=== PATIENT | male | born 1960 | race Caucasian/White ===

== ENCOUNTER 2019-07-28 23:46 | Inpatient (IN) | payer OTHER ==
[~2019-07-28] VITALS: Ht 172.7 cm; Wt 103.4 kg
[~2019-07-28 23:46] MED LIST: AMLO10TA88; ASPI-1155 PO; BIOT25008; COR25 PO; GABA-533 PO; LOSA1TAB40; METF-381 PO; NIAC1000; OMEP20CA11; SIMV40TA5 PO
[2019-07-29 01:17] VITALS: BP_SYST 152
[2019-07-29 03:30] LABS: BASOPHILS # (AUTO) 0.1 K/uL (0.0-0.2); EOSINOPHILS % (AUTO) 0.4 % (0.0-4.0); HEMOGLOBIN 11.3 g/dL (14.0-18.0); LYMPHOCYTES # (AUTO) 1.3 K/uL (1.0-5.5); LYMPHOCYTES % (AUTO) 17.9 % (20.5-51.5); MEAN CORPUSCULAR HEMOGLOBIN 26 pg (27-31); MEAN CORPUSCULAR HGB CONC 31 % (32-36); MEAN CORPUSCULAR VOLUME 82 fL (79.0-98.0); MONOCYTES # (AUTO) 0.7 K/uL (0.0-1.0); MONOCYTES % (AUTO) 9.6 % (1.7-9.3); NEUTROPHILS # (AUTO) 5.2 K/uL (1.8-7.7); NEUTROPHILS % (AUTO) 71.1 % (40.0-70.0); PLATELET COUNT (AUTO) 199 K/uL (130-430); WHITE BLOOD COUNT (AUTO) 7.3 K/uL (4.8-10.8)
[2019-07-29 03:50] LABS: CALCIUM 8.5 mg/dL (8.4-11.0); CREATININE 1.81 mg/dL (0.55-1.30); POTASSIUM 4.3 mmol/L (3.5-5.1)
[2019-07-29 03:58] LABS: ALBUMIN 3.1 g/dL (3.4-4.8); TOTAL BILIRUBIN 1.4 mg/dL (0.0-1.0)
[2019-07-29] MEDS ORDERED: ASPIRIN 325 MG TABLET PO ONE (04:30)
[2019-07-29] MEDS ORDERED: FUROSEMIDE 40 MG/4 ML VIAL IVP ONE (04:30)
[2019-07-29] MEDS ORDERED: GABA600T PO (06:16)
[2019-07-29] MEDS ORDERED: TADA5TAB2 PO (06:16)
[2019-07-29] MEDS ORDERED: ATOR40TA68 PO (06:17)
[2019-07-29] MEDS ORDERED: BIOT5000 PO (06:18)
[2019-07-29] MEDS ORDERED: NOR10 PO (06:22)
[2019-07-29] MEDS ORDERED: CYAN100082 PO (06:24)
[2019-07-29] MEDS ORDERED: OMEP20CA11 PO (06:25)
[2019-07-29] MEDS ORDERED: LOSA25TA3 PO (06:25)
[2019-07-29] MEDS ORDERED: MAGN64TA7 PO (06:28)
[2019-07-29] MEDS ORDERED: PUMPKIN SEED OIL PO (06:28)
[2019-07-29 08:06] VITALS: BP_SYST 153
[2019-07-29] MEDS ORDERED: LORazepam 2 MG/ML VIAL IVP PRN (09:30)
[2019-07-29] MEDS ORDERED: DEXTROSE 50% JECT 50 ML DISP.SYRIN IVP PRN (09:30)
[2019-07-29] MEDS ORDERED: ONDANSETRON HCL 4 MG/2 ML VIAL IVP PRN (09:30)
[2019-07-29] MEDS ORDERED: MORPHINE 2 MG/ML INJ. SYRINGE IVP PRN ×2 (09:30)
[2019-07-29] MEDS ORDERED: ZOLPIDEM TARTRATE 5 MG TABLET PO PRN (09:30)
[2019-07-29] MEDS ORDERED: DOCUSATE SODIUM 100 MG CAPSULE PO PRN (09:30)
[2019-07-29] MEDS ORDERED: MUPIROCIN 2% TOPICAL OINTMENT 22 GM NS PRN (09:30)
[2019-07-29] MEDS ORDERED: ACETAMINOPHEN 325 MG TABLET PO PRN (09:30)
[2019-07-29] MEDS ORDERED: FUROSEMIDE 20 MG/2 ML VIAL IVP ONE (09:30)
[2019-07-29] MEDS ORDERED: POTASSIUM CHLORIDE 20 MEQ TAB.PRT.SR PO PRN (09:30)
[2019-07-29 12:20] VITALS: BP_SYST 162
[2019-07-29] MEDS ORDERED: metFORMIN HCL 500 MG TABLET PO ONE (12:45)
[2019-07-29 16:01] VITALS: BP_SYST 146
[2019-07-29] MEDS: metFORMIN HCL 500 MG TABLET PO SCH (17:03)
[2019-07-29 20:01] VITALS: BP_SYST 157
[2019-07-29] MEDS: CARVEDILOL 25 MG TABLET (COREG) PO SCH (22:29)
[2019-07-29] MEDS: HEPARIN SODIUM,PORCINE 5000 UNITS/ML VIAL SUBCUT SCH (22:31)
[2019-07-30 00:05] VITALS: BP_SYST 149
[2019-07-30 07:11] LABS: BASOPHILS # (AUTO) 0.1 K/uL (0.0-0.2); BASOPHILS % (AUTO) 1.3 % (0.0-2.0); EOSINOPHILS # (AUTO) 0.1 K/uL (0.0-0.4); EOSINOPHILS % (AUTO) 1.3 % (0.0-4.0); LYMPHOCYTES # (AUTO) 1.5 K/uL (1.0-5.5); LYMPHOCYTES % (AUTO) 24.6 % (20.5-51.5); MEAN CORPUSCULAR HEMOGLOBIN 26 pg (27-31); MEAN CORPUSCULAR HGB CONC 32 % (32-36); MEAN CORPUSCULAR VOLUME 81 fL (79.0-98.0); MONOCYTES # (AUTO) 0.6 K/uL (0.0-1.0); MONOCYTES % (AUTO) 9.7 % (1.7-9.3); NEUTROPHILS # (AUTO) 3.8 K/uL (1.8-7.7); NEUTROPHILS % (AUTO) 63.1 % (40.0-70.0); PLATELET COUNT (AUTO) 174 K/uL (130-430); RED CELL DISTRIBUTION WIDTH 16.9 % (9.0-15.0); WHITE BLOOD COUNT (AUTO) 6.1 K/uL (4.8-10.8)
[2019-07-30 07:19] LABS: CALCIUM 8.3 mg/dL (8.4-11.0); CREATININE 1.55 mg/dL (0.55-1.30); POTASSIUM 3.4 mmol/L (3.5-5.1)
[2019-07-30 08:00] VITALS: BP_SYST 133
[2019-07-30] MEDS: GABAPENTIN 300 MG CAPSULE PO SCH (08:12)
[2019-07-30] MEDS: metFORMIN HCL 500 MG TABLET PO SCH ×2 (08:12→17:26)
[2019-07-30] MEDS: LOSARTAN POTASSIUM 25 MG TABLET PO SCH (08:13)
[2019-07-30] MEDS: amLODIPine BESYLATE 10 MG TABLET PO SCH (08:14)
[2019-07-30] MEDS: CARVEDILOL 25 MG TABLET (COREG) PO SCH ×2 (08:14→22:14)
[2019-07-30] MEDS: ASPIRIN 81 MG TAB.CHEW PO SCH (08:14)
[2019-07-30] MEDS: ATORVASTATIN 20 MG TABLET PO SCH (08:14)
[2019-07-30] MEDS: HEPARIN SODIUM,PORCINE 5000 UNITS/ML VIAL SUBCUT SCH ×2 (08:17→22:16)
[2019-07-30] MEDS: FUROSEMIDE 20 MG/2 ML VIAL IVP SCH (08:19)
[2019-07-30] MEDS: INSULIN LISPRO SLIDING SCALE 100 UNITS/ML VIAL (humaLOG) SUBCUT PRN (11:59)
[2019-07-30 12:00] VITALS: BP_SYST 142
[2019-07-30 16:00] VITALS: BP_SYST 143
[2019-07-30 19:28] VITALS: BP_SYST 129
[2019-07-30 20:33] LABS: BILIRUBIN,URINE NEGATIVE (NEGATIVE); BLOOD, URINE 3+ (NEGATIVE); COLOR,URINE YELLOW (YELLOW); GLUCOSE,URINE NEGATIVE (NEGATIVE); KETONES,URINE NEGATIVE (NEGATIVE); LEUKOCYTE ESTERASE ,URINE TRACE (NEGATIVE); NITRITE, URINE NEGATIVE (NEGATIVE); PH,URINE 7.5 (5.0-8.0); PROTEIN URINE 1+ (NEGATIVE)
[2019-07-30 20:48] LABS: CLARITY/URINE HAZY (CLEAR)
[2019-07-30 20:50] LABS: BACTERIA,URINE FEW /HPF (None Seen); RBC,URINE 50-80 /HPF (0-3)
[2019-07-30 20:51] LABS: MUCUS,URINE None Seen /LPF (None Seen)
[2019-07-31 00:15] VITALS: BP_SYST 145
[2019-07-31 07:07] LABS: BASOPHILS # (AUTO) 0.1 K/uL (0.0-0.2); BASOPHILS % (AUTO) 1.1 % (0.0-2.0); EOSINOPHILS # (AUTO) 0.1 K/uL (0.0-0.4); EOSINOPHILS % (AUTO) 1.2 % (0.0-4.0); HEMATOCRIT 33.6 % (36-54); HEMOGLOBIN 10.7 g/dL (14.0-18.0); LYMPHOCYTES # (AUTO) 1.5 K/uL (1.0-5.5); LYMPHOCYTES % (AUTO) 21.7 % (20.5-51.5); MEAN CORPUSCULAR HEMOGLOBIN 26 pg (27-31); MEAN CORPUSCULAR HGB CONC 32 % (32-36); MEAN CORPUSCULAR VOLUME 81 fL (79.0-98.0); MONOCYTES # (AUTO) 0.7 K/uL (0.0-1.0); MONOCYTES % (AUTO) 10.4 % (1.7-9.3); NEUTROPHILS # (AUTO) 4.4 K/uL (1.8-7.7); NEUTROPHILS % (AUTO) 65.6 % (40.0-70.0); PLATELET COUNT (AUTO) 171 K/uL (130-430); RED BLOOD CELL COUNT(AUTO) 4.17 MIL/uL (4.2-6.2); RED CELL DISTRIBUTION WIDTH 16.6 % (9.0-15.0); WHITE BLOOD COUNT (AUTO) 6.8 K/uL (4.8-10.8)
[2019-07-31 07:17] LABS: CALCIUM 8.1 mg/dL (8.4-11.0); CREATININE 1.41 mg/dL (0.55-1.30); POTASSIUM 3.5 mmol/L (3.5-5.1)
[2019-07-31 08:00] VITALS: BP_SYST 146
[2019-07-31] MEDS: ASPIRIN 81 MG TAB.CHEW PO SCH (08:07)
[2019-07-31] MEDS: GABAPENTIN 300 MG CAPSULE PO SCH (08:07)
[2019-07-31] MEDS: ATORVASTATIN 20 MG TABLET PO SCH (08:07)
[2019-07-31] MEDS: metFORMIN HCL 500 MG TABLET PO SCH ×2 (08:07→17:24)
[2019-07-31] MEDS: amLODIPine BESYLATE 10 MG TABLET PO SCH (08:08)
[2019-07-31] MEDS: CARVEDILOL 25 MG TABLET (COREG) PO SCH ×2 (08:08→22:17)
[2019-07-31] MEDS: LOSARTAN POTASSIUM 25 MG TABLET PO SCH (08:08)
[2019-07-31] MEDS: FUROSEMIDE 20 MG/2 ML VIAL IVP SCH ×2 (08:10→21:00)
[2019-07-31] MEDS: HEPARIN SODIUM,PORCINE 5000 UNITS/ML VIAL SUBCUT SCH ×2 (08:15→22:30)
[2019-07-31 12:20] VITALS: BP_SYST 119
[2019-07-31] MEDS: MAGNESIUM SULFATE 50 ML IV PRN (12:36)
[2019-07-31 16:27] VITALS: BP_SYST 134
[2019-07-31 20:00] VITALS: BP_SYST 125
[2019-07-31] MEDS: INSULIN LISPRO SLIDING SCALE 100 UNITS/ML VIAL (humaLOG) SUBCUT PRN (22:20)
[2019-08-01] VITALS: BP_SYST 118
[2019-08-01 06:40] LABS: BASOPHILS # (AUTO) 0.1 K/uL (0.0-0.2); BASOPHILS % (AUTO) 1.9 % (0.0-2.0); EOSINOPHILS # (AUTO) 0.1 K/uL (0.0-0.4); EOSINOPHILS % (AUTO) 1.4 % (0.0-4.0); HEMATOCRIT 35.1 % (36-54); HEMOGLOBIN 11.2 g/dL (14.0-18.0); LYMPHOCYTES # (AUTO) 1.4 K/uL (1.0-5.5); LYMPHOCYTES % (AUTO) 23.2 % (20.5-51.5); MEAN CORPUSCULAR HEMOGLOBIN 26 pg (27-31); MEAN CORPUSCULAR HGB CONC 32 % (32-36); MEAN CORPUSCULAR VOLUME 81 fL (79.0-98.0); MONOCYTES # (AUTO) 0.5 K/uL (0.0-1.0); MONOCYTES % (AUTO) 8.1 % (1.7-9.3); NEUTROPHILS # (AUTO) 3.9 K/uL (1.8-7.7); NEUTROPHILS % (AUTO) 65.4 % (40.0-70.0); PLATELET COUNT (AUTO) 168 K/uL (130-430); RED BLOOD CELL COUNT(AUTO) 4.36 MIL/uL (4.2-6.2); RED CELL DISTRIBUTION WIDTH 16.8 % (9.0-15.0)
[2019-08-01 06:53] LABS: CALCIUM 8.3 mg/dL (8.4-11.0); CREATININE 1.44 mg/dL (0.55-1.30); POTASSIUM 3.5 mmol/L (3.5-5.1)
[2019-08-01 08:01] VITALS: BP_SYST 155
[2019-08-01] MEDS: metFORMIN HCL 500 MG TABLET PO SCH ×2 (08:46→17:38)
[2019-08-01] MEDS: CARVEDILOL 25 MG TABLET (COREG) PO SCH ×2 (08:47→20:06)
[2019-08-01] MEDS: amLODIPine BESYLATE 10 MG TABLET PO SCH (08:47)
[2019-08-01] MEDS: ASPIRIN 81 MG TAB.CHEW PO SCH (08:47)
[2019-08-01] MEDS: ATORVASTATIN 20 MG TABLET PO SCH (08:47)
[2019-08-01] MEDS: GABAPENTIN 300 MG CAPSULE PO SCH (08:48)
[2019-08-01] MEDS: LOSARTAN POTASSIUM 25 MG TABLET PO SCH (08:48)
[2019-08-01] MEDS: FUROSEMIDE 20 MG/2 ML VIAL IVP SCH ×2 (08:48→20:07)
[2019-08-01] MEDS: HEPARIN SODIUM,PORCINE 5000 UNITS/ML VIAL SUBCUT SCH ×2 (08:50→20:10)
[2019-08-01] MEDS: MAGNESIUM SULFATE 50 ML IV PRN (11:21)
[2019-08-01 12:38] VITALS: BP_SYST 138
[2019-08-01 16:21] VITALS: BP_SYST 133
[2019-08-01 20:05] VITALS: BP_SYST 134
[2019-08-01] MEDS: INSULIN LISPRO SLIDING SCALE 100 UNITS/ML VIAL (humaLOG) SUBCUT PRN (20:38)
[2019-08-02 01:16] VITALS: BP_SYST 112
[2019-08-02 07:03] LABS: BASOPHILS # (AUTO) 0.1 K/uL (0.0-0.2); BASOPHILS % (AUTO) 1.3 % (0.0-2.0); EOSINOPHILS # (AUTO) 0.1 K/uL (0.0-0.4); EOSINOPHILS % (AUTO) 2.3 % (0.0-4.0); LYMPHOCYTES # (AUTO) 1.2 K/uL (1.0-5.5); MEAN CORPUSCULAR HEMOGLOBIN 26 pg (27-31); MEAN CORPUSCULAR HGB CONC 32 % (32-36); MEAN CORPUSCULAR VOLUME 81 fL (79.0-98.0); MONOCYTES # (AUTO) 0.6 K/uL (0.0-1.0); MONOCYTES % (AUTO) 11.6 % (1.7-9.3); NEUTROPHILS # (AUTO) 3.5 K/uL (1.8-7.7); NEUTROPHILS % (AUTO) 62.8 % (40.0-70.0); PLATELET COUNT (AUTO) 156 K/uL (130-430); RED BLOOD CELL COUNT(AUTO) 4.31 MIL/uL (4.2-6.2); RED CELL DISTRIBUTION WIDTH 16.5 % (9.0-15.0); WHITE BLOOD COUNT (AUTO) 5.5 K/uL (4.8-10.8)
[2019-08-02 07:16] LABS: CALCIUM 7.8 mg/dL (8.4-11.0); CREATININE 1.33 mg/dL (0.55-1.30); POTASSIUM 3.7 mmol/L (3.5-5.1)
[2019-08-02] MEDS: metFORMIN HCL 500 MG TABLET PO SCH (07:39)
[2019-08-02 08:00] VITALS: BP_SYST 135
[2019-08-02] MEDS: FUROSEMIDE 20 MG/2 ML VIAL IVP SCH (08:54)
[2019-08-02] MEDS: ASPIRIN 81 MG TAB.CHEW PO SCH (08:55)
[2019-08-02] MEDS: GABAPENTIN 300 MG CAPSULE PO SCH (08:55)
[2019-08-02] MEDS: amLODIPine BESYLATE 10 MG TABLET PO SCH (08:55)
[2019-08-02] MEDS: ATORVASTATIN 20 MG TABLET PO SCH (08:55)
[2019-08-02] MEDS: CARVEDILOL 25 MG TABLET (COREG) PO SCH (08:56)
[2019-08-02] MEDS: LOSARTAN POTASSIUM 25 MG TABLET PO SCH (08:56)
[2019-08-02] MEDS: HEPARIN SODIUM,PORCINE 5000 UNITS/ML VIAL SUBCUT SCH (08:57)
[2019-08-02] MEDS ORDERED: POTA10TA11 PO (10:42)
[2019-08-02] MEDS ORDERED: FURO-149 PO (10:42)
[2019-08-02 11:13] VITALS: BP_SYST 117
[2019-08-02 12:16] VITALS: BP_SYST 117
== END 2019-08-02 15:03 | disposition home health service (06) | DRG 280 ==
LOC: SED 23:46 → STU 07-29 05:42
PROVIDERS: ADMIT General Practice; ATTEND General Practice
DX: I21.A1 Myocardial infarction type 2 (principal); N17.0 Acute kidney failure with tubular necrosis; I50.43 Acute on chronic combined systolic (congestive) and diastolic (congestive) heart failure; E44.0 Moderate protein-calorie malnutrition; I13.0 Hypertensive heart and chronic kidney disease with heart failure and stage 1 through stage 4 chronic kidney disease, or unspecified chronic kidney disease; Z66 Do not resuscitate; E66.9 Obesity, unspecified; E11.22 Type 2 diabetes mellitus with diabetic chronic kidney disease; E11.51 Type 2 diabetes mellitus with diabetic peripheral angiopathy without gangrene; E11.65 Type 2 diabetes mellitus with hyperglycemia; E78.5 Hyperlipidemia, unspecified; F17.200 Nicotine dependence, unspecified, uncomplicated; N18.3 Chronic kidney disease, stage 3 (moderate); Z60.2 Problems related to living alone; I16.0 Hypertensive urgency; K21.9 Gastro-esophageal reflux disease without esophagitis; R33.9 Retention of urine, unspecified; N50.89 Other specified disorders of the male genital organs; Z91.19 Patient's noncompliance with other medical treatment and regimen; Z88.0 Allergy status to penicillin; Z88.8 Allergy status to other drugs, medicaments and biological substances; Z79.82 Long term (current) use of aspirin; Z79.84 Long term (current) use of oral hypoglycemic drugs; Z79.899 Other long term (current) drug therapy; Z86.73 Personal history of transient ischemic attack (TIA), and cerebral infarction without residual deficits; Z68.34 Body mass index [BMI] 34.0-34.9, adult
CPT/HCPCS: 36415; 71045; 80048; 80053; 81000-TC; 82962; 83036; 83690-TC; 83735-TC; 83880; 84484; 85025; 87081; 93005; 93306; 96374; 99285; G0378; J1644; J1940; J3475